=== PATIENT | female | born 1960 | race Caucasian/White ===

== ENCOUNTER 2018-05-09 10:13 | Day surgery (SDC) | payer OTHER ==
[~2018-05-09 10:13] MED LIST: Cefuroxime 10 MG/ML SYRINGE EYERT SCH; Lidocaine 1% PF 2 ML SDV INJECT SCH; Pilocarpine 4% Ophth Soln 15 ML Bot EYERT SCH
[2018-05-09] MEDS: Polymyxin B/Trimethoprim 10 ML Bottle EYERT SCH ×3 (10:58→12:57)
[2018-05-09] MEDS: Brimonidine 0.2% Ophth Soln 5 ML Bottle EYERT SCH ×3 (11:03→12:57)
[2018-05-09] MEDS: Phenylephrine 2.5% Ophth Soln 2 ML Bot EYERT SCH ×5 (11:08→12:39)
[2018-05-09] MEDS: Tropicamide 1% Ophth Soln 3 ML Bottle EYERT SCH ×4 (11:13→12:02)
--- NOTE | 2018-05-09 11:20 | PCM.PREANE ---
Preanesthetic Assessment - Procedure Proposed Procedure: cataract right - Anesthesia/Transfusion/Family Hx Anesthesia History: Prior Anesthesia Without Reaction Family History of Anesthesia Reaction: No Transfusion History: No Prior Transfusion(s) - Review of Systems General: No Symptoms Pulmonary: No Symptoms Cardiovascular: No Symptoms Gastrointestinal: No Symptoms Neurological: No Symptoms Other: Reports: None - Physical Assessment NPO Status Date: 05/08/18 NPO Status Time: 21:45 O2 Sat by Pulse Oximetry: 99 Respiratory Rate: 16 Vital Signs: Last Vital Signs Temp 97.9 F 05/09/18 10:55 Pulse 57 L 05/09/18 10:55 Resp 16 05/09/18 10:55 BP 149/81 H 05/09/18 10:55 Pulse Ox 99 05/09/18 10:55 Height: 5 ft 6 in Weight: 77.111 kg ASA Class: 2 Mental Status: Alert & Oriented x3 Airway Class: Mallampati = 1 Dentition: Reports: Normal Dentition, [place](s) Thyro-Mental Finger Breadths: 3 Mouth Opening Finger Breadths: 3 ROM/Head Extension: Full Lungs: Clear to Auscultation, Normal Respiratory Effort Cardiovascular: Regular Rate, Regular Rhythm - Allergies Allergies/Adverse Reactions: Allergies Allergy/AdvReac Type Severity Reaction Status Date / Time No Known Allergies Allergy Verified 05/08/18 10:12 - Blood Blood Available: No - Acknowledgements Anesthesia Type Planned: MAC Pt an Appropriate Candidate for the Planned Anesthesia: Yes Alternatives and Risks of Anesthesia Discussed w Pt/Guardian: Yes Pt/Guardian Understands and Agrees with Anesthesia Plan: Yes PreAnesthesia Questionnaire HEENT History: Reports: Impaired Vision Cardiovascular History: Reports: Heart Murmur Respiratory History: Reports: None Gastrointestinal History: Reports: None Musculoskeletal History: Reports: Arthritis (back) Neurological History: Reports: Headaches, Chronic Oncologic (Cancer) History: Reports: None - Past Surgical History Musculoskeletal Surgical History: Reports: Arthroscopic Knee, Carpal Tunnel, Knee Replacement (both) - SUBSTANCE USE Smoking Status *Q: Never Smoker Tobacco Use Within Last Twelve Months: No Second Hand Smoke Exposure: No Days Per Week of Alcohol Use: 2 Number of Drinks Per Day: 1 Total Drinks Per Week: 2 Recreational Drug Use History: No - HOME MEDS Home Medications: Home Meds Aspirin [Halfprin] 81 mg PO DAILY 05/08/18 [History] Carboxymethylcellulose Sodium [Refresh Tears 0.5%] 1 drop EYEBOTH BID PRN [History] Lutein 10 mg PO DAILY 05/08/18 [History] Multivitamin [Multivitamins] 1 cap PO DAILY 05/08/18 [History] [place] 3,6,9 Combination No.7 [[place] Dha] 1 tab PO DAILY 05/08/18 [History] - CURRENT (IN HOUSE) MEDS Current Meds: Current Medications Brimonidine Tartrate (Alphagan 0.2% Ophth Soln) 0 ml EYERT ASDIRECTED MAGDIEL Stop: 05/09/18 19:00 Last Admin: 05/09/18 11:03 Dose: 1 drop Cefuroxime Sodium (Zinacef) 0 mg EYERT ASDIRECTED MAGDIEL Stop: 05/09/18 19:00 Lidocaine HCl (Xylocaine-Mpf 1%) 0 ml INJECT ASDIRECTED MAGDIEL Stop: 05/09/18 19:00 Phenylephrine HCl (Gabriel-Synephrine 2.5% Ophth Soln) 0 ml EYERT ASDIRECTED MAGDIEL Stop: 05/09/18 19:00 Last Admin: 05/09/18 11:08 Dose: 1 drop Pilocarpine HCl (Pilocar 4% Ophth Soln) 0 ml EYERT ASDIRECTED MAGDIEL Stop: 05/09/18 19:00 Polymyxin/Trimethoprim Sulfate (Polytrim Ophth Soln) 0 ml EYERT ASDIRECTED MAGDIEL Stop: 05/09/18 19:00 Last Admin: 05/09/18 10:58 Dose: 1 drop Tetracaine HCl (Tetracaine 0.5% Steri-Unit [place]) 0 ml EYERT ASDIRECTED MAGDIEL Stop: 05/09/18 19:00 Tropicamide (Mydriacyl 1% Ophth Soln) 0 ml EYERT ASDIRECTED MAGDIEL Stop: 05/09/18 19:00 Last Admin: 05/09/18 11:13 Dose: 1 drop
[2018-05-09] MEDS: Tetracaine HCl/PF 0.5% 4 ML Bottle EYERT SCH ×2 (12:20→12:43)
--- NOTE | 2018-05-09 12:59 | PCM48HPAN ---
Post Anesthesia Note - EVALUATION WITHIN 48HRS OF ANESTHETIC Vital Signs in Normal Range: Yes Patient Participated in Evaluation: Yes Respiratory Function Stable: Yes Airway Patent: Yes Cardiovascular Function Stable: Yes Hydration Status Stable: Yes Pain Control Satisfactory: Yes Nausea and Vomiting Control Satisfactory: Yes Mental Status Recovered: Yes Pulse Rate: 68 SaO2: 100 Resp Rate: 16 Temperature: 36 C Blood Pressure: 154/94
== END 2018-05-09 13:06 | disposition home or self-care (01) ==
LOC: JD.SDS 10:13
PROVIDERS: ATTEND Ophthalmology
DX: H25.813 Combined forms of age-related cataract, bilateral (principal); I10 Essential (primary) hypertension; H40.003 Preglaucoma, unspecified, bilateral; H16.223 Keratoconjunctivitis sicca, not specified as Sjogren's, bilateral; H02.831 Dermatochalasis of right upper eyelid; Z79.82 Long term (current) use of aspirin; Z79.899 Other long term (current) drug therapy
CPT/HCPCS: 66984; C1780; J0697; J2001; A9270-GY

== ENCOUNTER 2018-06-06 08:09 | Day surgery (SDC) | payer OTHER ==
[~2018-06-06 08:09] MED LIST changes: +Cefuroxime 10 MG/ML SYRINGE EYELF SCH; -Cefuroxime 10 MG/ML SYRINGE EYERT SCH; +Pilocarpine 4% Ophth Soln 15 ML Bot EYELF SCH; -Pilocarpine 4% Ophth Soln 15 ML Bot EYERT SCH
[2018-06-06] MEDS: Polymyxin B/Trimethoprim 10 ML Bottle EYELF SCH ×3 (08:54→10:49)
[2018-06-06] MEDS: Brimonidine 0.2% Ophth Soln 5 ML Bottle EYELF SCH ×3 (09:00→10:49)
[2018-06-06] MEDS: Phenylephrine 2.5% Ophth Soln 2 ML Bot EYELF SCH ×5 (09:05→10:23)
[2018-06-06] MEDS: Tropicamide 1% Ophth Soln 3 ML Bottle EYELF SCH ×4 (09:10→09:55)
--- NOTE | 2018-06-06 09:32 | PCM.PREANE ---
Preanesthetic Assessment - Anesthesia/Transfusion/Family Hx Anesthesia History: Prior Anesthesia Without Reaction Family History of Anesthesia Reaction: No Transfusion History: No Prior Transfusion(s) - Review of Systems General: No Symptoms Cardiovascular: Other (HTN, +murmur) Gastrointestinal: No Symptoms Neurological: No Symptoms Other: Reports: None - Physical Assessment NPO Status Date: 06/05/18 NPO Status Time: 22:00 Pulse: 60 O2 Sat by Pulse Oximetry: 99 Respiratory Rate: 16 Vital Signs: Last Vital Signs Temp 36.5 C 06/06/18 08:45 Pulse 60 06/06/18 08:45 Resp 16 06/06/18 08:45 BP 150/85 H 06/06/18 08:45 Pulse Ox 99 06/06/18 08:45 Height: 1.68 m Weight: 77.111 kg ASA Class: 3 Mental Status: Alert & Oriented x3 Airway Class: Mallampati = 2 Dentition: Reports: Normal Dentition Thyro-Mental Finger Breadths: 3 Mouth Opening Finger Breadths: 3 ROM/Head Extension: Full Lungs: Clear to Auscultation, Normal Respiratory Effort Cardiovascular: Regular Rate, Regular Rhythm - Allergies Allergies/Adverse Reactions: Allergies Allergy/AdvReac Type Severity Reaction Status Date / Time No Known Allergies Allergy Verified 06/05/18 13:29 - Blood Blood Available: No - Anesthesia Plan Pre-Op Medication Ordered: None - Acknowledgements Anesthesia Type Planned: MAC Pt an Appropriate Candidate for the Planned Anesthesia: Yes Alternatives and Risks of Anesthesia Discussed w Pt/Guardian: Yes Pt/Guardian Understands and Agrees with Anesthesia Plan: Yes PreAnesthesia Questionnaire HEENT History: Reports: Impaired Vision Cardiovascular History: Reports: Heart Murmur Respiratory History: Reports: None Gastrointestinal History: Reports: None Musculoskeletal History: Reports: Arthritis (back) Neurological History: Reports: Headaches, Chronic Oncologic (Cancer) History: Reports: None - Past Surgical History Musculoskeletal Surgical History: Reports: Arthroscopic Knee, Carpal Tunnel, Knee Replacement (both) - HOME MEDS Home Medications: Home Meds Aspirin [Halfprin] 81 mg PO DAILY 05/08/18 [History] Carboxymethylcellulose Sodium [Refresh Tears 0.5%] 1 drop EYEBOTH BID PRN [History] Lutein 10 mg PO DAILY 05/08/18 [History] Multivitamin [Multivitamins] 1 cap PO DAILY 05/08/18 [History] [place] 3,6,9 Combination No.7 [[place] Dha] 1 tab PO DAILY 05/08/18 [History] - CURRENT (IN HOUSE) MEDS Current Meds: Current Medications Brimonidine Tartrate (Alphagan 0.2% Ophth Soln) 0 ml EYELF ASDIRECTED MAGDIEL Stop: 06/06/18 18:00 Last Admin: 06/06/18 09:00 Dose: 1 drop Cefuroxime Sodium (Zinacef) 0 mg EYELF ASDIRECTED MAGDIEL Stop: 06/06/18 18:00 Lidocaine HCl (Xylocaine-Mpf 1%) 0 ml INJECT ASDIRECTED MAGDIEL Stop: 06/06/18 18:00 Phenylephrine HCl (Gabriel-Synephrine 2.5% Ophth Soln) 0 ml EYELF ASDIRECTED MAGDIEL Stop: 06/06/18 18:00 Last Admin: 06/06/18 09:26 Dose: 1 drop Pilocarpine HCl (Pilocar 4% Ophth Soln) 0 ml EYELF ASDIRECTED MAGDIEL Stop: 06/06/18 18:00 Polymyxin/Trimethoprim Sulfate (Polytrim Ophth Soln) 0 ml EYELF ASDIRECTED MAGDIEL Stop: 06/06/18 18:00 Last Admin: 06/06/18 08:54 Dose: 1 drop Tetracaine HCl (Tetracaine 0.5% Steri-Unit [place]) 0 ml EYELF ASDIRECTED MAGDIEL Stop: 06/06/18 18:00 Tropicamide (Mydriacyl 1% Ophth Soln) 0 ml EYELF ASDIRECTED MAGDIEL Stop: 06/06/18 18:00 Last Admin: 06/06/18 09:20 Dose: 1 drop
[2018-06-06] MEDS: Tetracaine HCl/PF 0.5% 4 ML Bottle EYELF SCH ×2 (10:00→10:38)
--- NOTE | 2018-06-06 10:51 | PCM48HPAN ---
Post Anesthesia Note - EVALUATION WITHIN 48HRS OF ANESTHETIC Vital Signs in Normal Range: Yes Patient Participated in Evaluation: Yes Respiratory Function Stable: Yes Airway Patent: Yes Cardiovascular Function Stable: Yes Hydration Status Stable: Yes Pain Control Satisfactory: Yes Nausea and Vomiting Control Satisfactory: Yes Mental Status Recovered: Yes Pulse Rate: 63 SaO2: 100 Resp Rate: 16 Temperature: 36.6 C Blood Pressure: 154/94
== END 2018-06-06 11:04 | disposition home or self-care (01) ==
LOC: JD.SDS 08:09
PROVIDERS: ATTEND Ophthalmology
DX: H25.812 Combined forms of age-related cataract, left eye (principal); I10 Essential (primary) hypertension; H40.003 Preglaucoma, unspecified, bilateral; H02.834 Dermatochalasis of left upper eyelid; H02.831 Dermatochalasis of right upper eyelid; H16.223 Keratoconjunctivitis sicca, not specified as Sjogren's, bilateral; H16.103 Unspecified superficial keratitis, bilateral; Z79.82 Long term (current) use of aspirin; Z79.899 Other long term (current) drug therapy; Z98.41 Cataract extraction status, right eye; Z96.1 Presence of intraocular lens
CPT/HCPCS: 66984; C1780; J0697; A9270-GY; J2001

== ENCOUNTER 2020-01-30 08:53 | Day surgery (SDC) | payer OTHER ==
[~2020-01-30 08:53] MED LIST changes: -Cefuroxime 10 MG/ML SYRINGE EYELF SCH; +Lactated Ringers 1,000 ML IV SCH; -Lidocaine 1% PF 2 ML SDV INJECT SCH; +Lidocaine 1%/Sod Bicarbonate in NS 8.4% 1 ML Syringe IDERM PRN; -Pilocarpine 4% Ophth Soln 15 ML Bot EYELF SCH; +Sodium Chloride 0.9% 10 ML Syringe FLUSH PRN
--- NOTE | 2020-01-30 09:42 | PCM.PREANE ---
Preanesthetic Assessment - Anesthesia/Transfusion/Family Hx Anesthesia History: Prior Anesthesia Without Reaction Family History of Anesthesia Reaction: No Transfusion History: No Prior Transfusion(s) Intubation History: Unknown - Review of Systems General: Fever (couple days ago/resolved), Fatigue Pulmonary: No Symptoms (ETOH: socially) Cardiovascular: No Symptoms (History of HTN), Lightheadedness (positional changes) Gastrointestinal: Abdominal Pain (2/10 laying still, 5/10 with movement.), Decreased Appetite, Diarrhea, Nausea Neurological: No Symptoms, Headache Other: Reports: None - Physical Assessment NPO Status Date: 01/29/20 NPO Status Time: 21:00 Vital Signs: HR: 85 BP: 134/86 Resp: 16 Sat: 95% Temp: 99 Height: 1.68 m Weight: 75 kg ASA Class: 2 Mental Status: Alert & Oriented x3 Airway Class: Mallampati = 2 Dentition: Reports: Normal Dentition, [place](s), [place] Thyro-Mental Finger Breadths: 3 Mouth Opening Finger Breadths: 3 ROM/Head Extension: Full Lungs: Clear to Auscultation, Normal Respiratory Effort Cardiovascular: Regular Rate, Regular Rhythm, No Murmurs - Lab Values: All labs reviewed and noted and within acceptable ranges to proceed with scheduled procedure. - Imaging/EKG Impressions: EKG:SR rate= 79, abnormal R wave progression, left anterior fascicular block. - Allergies Allergies/Adverse Reactions: Allergies Allergy/AdvReac Type Severity Reaction Status Date / Time No Known Allergies Allergy Verified 06/05/18 13:29 - Anesthesia Plan Pre-Op Medication Ordered: None, Other (scopalamine patch placed in pre-op.) - Acknowledgements Anesthesia Type Planned: General Anesthesia Pt an Appropriate Candidate for the Planned Anesthesia: Yes Alternatives and Risks of Anesthesia Discussed w Pt/Guardian: Yes Pt/Guardian Understands and Agrees with Anesthesia Plan: Yes PreAnesthesia Questionnaire HEENT History: Reports: Impaired Vision Cardiovascular History: Reports: Heart Murmur Respiratory History: Reports: None Gastrointestinal History: Reports: None Musculoskeletal History: Reports: Arthritis (back) Neurological History: Reports: Headaches, Chronic Oncologic (Cancer) History: Reports: None - Past Surgical History Musculoskeletal Surgical History: Reports: Arthroscopic Knee, Carpal Tunnel, Knee Replacement (both) - HOME MEDS Home Medications: Home Meds Aspirin [Halfprin] 81 mg PO DAILY 05/08/18 [History] Carboxymethylcellulose Sodium [Refresh Tears 0.5%] 1 drop EYEBOTH BID PRN [History] Lutein 10 mg PO DAILY 05/08/18 [History] Multivitamin [Multivitamins] 1 cap PO DAILY 05/08/18 [History] [place] 3,6,9 Combination No.7 [[place] Dha] 1 tab PO DAILY 05/08/18 [History] - CURRENT (IN HOUSE) MEDS Current Meds: Current Medications Lactated Ringer's (Ringers, Lactated) 1,000 mls @ 125 mls/hr IV ASDIRECTED MAGDIEL Stop: 01/30/20 23:00 Lidocaine/Sodium Bicarbonate (Buffered Lidocaine 1% In Ns 8.4%) 0.25 ml IDERM ONETIME PRN PRN Reason: Prior to IV Start Stop: 01/30/20 18:00 Sodium Chloride (Saline Flush) 10 ml FLUSH ASDIRECTED PRN PRN Reason: Keep Vein Open Stop: 01/30/20 18:00
[2020-01-30] MEDS ORDERED: Scopolamine 1.5 MG Transdermal Patch TRDERM ONE (09:43)
[2020-01-30] MEDS ORDERED: ceFAZolin 1 GM Vial ONE (09:46)
[2020-01-30] MEDS ORDERED: Ondansetron 4 MG/2 ML SDV ONE (09:46)
[2020-01-30] MEDS ORDERED: Rocuronium 50 MG/5 ML Vial ONE (09:46)
[2020-01-30] MEDS ORDERED: Lactated Ringers 1,000 ML ONE (09:46)
[2020-01-30] MEDS ORDERED: Lidocaine 1% 4 ML ONE (09:46)
[2020-01-30] MEDS ORDERED: Midazolam 1 MG/ML 2 ML SDV ONE (09:47)
[2020-01-30] MEDS ORDERED: Propofol 200 MG/20 ML SDV ONE (09:47)
[2020-01-30] MEDS ORDERED: Dexamethasone 4 MG/ML 5 ML MDV ONE (09:47)
[2020-01-30] MEDS ORDERED: fentaNYL 250 MCG/5 ML SDV ONE (09:47)
[2020-01-30] MEDS ORDERED: Ketorolac 15 MG/ML SDV ONE (09:47)
[2020-01-30] MEDS ORDERED: Bupivacaine 0.5%/EPINEPHrine 1:200,000 50 ML MDV ONE (10:46)
[2020-01-30] MEDS ORDERED: Lidocaine 1% with EPINEPHrine 1:100,000 20 ML MDV ONE ×2 (10:46→11:20)
[2020-01-30] MEDS ORDERED: fentaNYL 100 MCG/2 ML SDV IVPUSH PRN (11:32)
[2020-01-30] MEDS ORDERED: HYDROmorphone 0.5 MG/0.5 ML Syringe IVPUSH PRN (11:32)
[2020-01-30] MEDS ORDERED: Ondansetron 4 MG/2 ML SDV IVPUSH PRN (11:32)
[2020-01-30] MEDS ORDERED: HYDROmorphone 0.5 MG/0.5 ML Syringe ONE (12:36)
--- NOTE | 2020-01-30 12:40 | PCM.OPNOTE ---
- General Post-Op/Procedure Note Date of Surgery/Procedure: 01/30/20 Operative Procedure(s): laparoscopic cholecystectomy Findings: acute cholecystitis Pre Op Diagnosis: symptomatic cholelithiasis Post-Op Diagnosis: acute cholecystitis Anesthesia Technique: General ET Tube Primary Surgeon: Flory Quinones Anesthesia Provider: Barbara Arzola Pathology: gallbladder with contents Fluid Replacement, Intraop: 1,500 Output, Urine Amount: 0 EBL in mLs: 15 Complications: none apparent Condition: Good
--- NOTE | 2020-01-30 12:48 | PCM.PRNOTE ---
- Free Text/Narrative Note: OPERATIVE REPORT Date of Surgery/Procedure: January 30, 2020 Operative Procedure(s): laparoscopic cholecystectomy Findings: Acute cholecystitis Pre Op Diagnosis: Symptomatic cholelithiasis Post-Op Diagnosis: Acute cholecystitis Anesthesia Technique: General ET Tube Primary Surgeon: Flory Quinones MD Anesthesia Provider: Barbara Arzola CRNA Pathology: Gallbladder with contents Fluid Replacement, Intraop: 1500cc Output, Urine Amount: 0cc EBL: 15cc Drain/Tube Comments: None Indication for the procedure: The patient is a 59-year-old lady who presented to my office with findings of symptomatic cholelithiasis and possible acute cholecystitis. She was scheduled for urgent cholecystectomy. The patient was counseled for laparoscopic cholecystectomy, with possible conversion to open. After discussion of the risks of infection, bleeding and injury to the bile duct as well as increased complication from previous intra-abdominal surgery, the patient's consent was obtained. Description of the procedure: The patient presented to the outpatient holding area on the day of the procedure. The history and physical were verified and consent was present and on the chart. The patient was taken back to the operating room and placed in supine position on the operating table. SCD boots were placed and functional prior to the start of the procedure. Preoperative antibiotics were administered according to SCIP protocol, Ancef 2 g IV. A surgical timeout was performed. The patient then had induction of general anesthesia and was intubated without difficulty. The patient was prepped and draped in standard surgical fashion. We began by making an infraumbilical vertical incision and deepened this down through subcutaneous fat to the level of the fascia. This was grasped and incised. We bluntly entered through the peritoneum and a finger sweep was done. A stay suture of 0 Vicryl was placed in the fascia. The 12 mm balloon Flores port was then inserted into the abdomen and the balloon inflated. Insufflation was attached and we had appropriate opening pressures. The abdomen was then insufflated to 15 mmHg. We inserted a scope into the abdomen and inspected the area where we had entered. There was no evidence of injury to surrounding structures with no evidence of bile or bleeding. A TAP block was then performed using 1% lidocaine with epinephrine mixed with 0.5% bupivacaine with epinephrine. The patient was then positioned with head up and right side up to facilitate exposure of the gallbladder. We then proceeded with placing our additional ports. A 5mm port was placed in the epigastric region. Two additional 5mm ports placed under direct visualization in the right upper quadrant. Once we had sufficiently exposed the dome of the gallbladder. This was grasped and retracted cephalad. We proceeded with our dissection to expose the cystic duct and cystic artery. We did have a critical view. The cystic duct and artery were then clipped and cut using laparoscopic scissors. There appeared to be a second posterior artery which was dissected and clipped. This was cut with scopic scissors. We then proceeded to fully dissect the gallbladder off of the cystic plate using the Bovie device. The gallbladder was then placed in the Endo Catch bag and withdrawn towards the umbilical port. We then inspected the area of the dissection. A small hole was made in the gallbladder during the dissection with a spillage of a small amount of bile. The blood and spilled bile was suctioned and removed from the abdomen. Surgicel was used for hemostasis and then removed. There was no significant bleeding and hemostasis was achieved. We then inspected the port sites and desufflated the abdomen. The ports were then removed. The gallbladder was withdrawn through the umbilical port site. We then proceeded to close the umbilical port site using an 0 Vicryl stitch. We had good closure of the fascia. A superficial 4-0 monocryl suture was used to approximate the skin. The skin was covered with Dermabond surgical glue. The patient tolerated the procedure well and was extubated without difficulty. He was transported to the PACU in stable condition. All sponge, needle counts correct. I was scrubbed and actively participated in the entire procedure. No immediate complications noted. Complications: None apparent Condition: Good Flory Quinones MD General Surgery
--- NOTE | 2020-01-30 12:56 | PCM.POSTAN ---
POST ANESTHESIA ASSESSMENT - MENTAL STATUS Mental Status: Other (Drowsy) - VITAL SIGNS Vital Signs: Last Vital Signs Temp 36.7 C 01/30/20 12:49 Pulse 70 01/30/20 12:49 Resp 8 L 01/30/20 12:49 BP 135/77 01/30/20 12:49 Pulse Ox 100 01/30/20 12:49 - RESPIRATORY Respiratory Status: Respiratory Rate WNL, Airway Patent, O2 Saturation Stable, Supplemental Oxygen - CARDIOVASCULAR CV Status: Pulse Rate WNL, Blood Pressure Stable - GASTROINTESTINAL GI Status: No Symptoms - PAIN Pain Score: 0 - POST OP HYDRATION Hydration Status: Adequate & Stable
--- NOTE | 2020-01-30 13:57 | PCM48HPAN ---
Post Anesthesia Note - EVALUATION WITHIN 48HRS OF ANESTHETIC Vital Signs in Normal Range: Yes Patient Participated in Evaluation: Yes Respiratory Function Stable: Yes Airway Patent: Yes Cardiovascular Function Stable: Yes Hydration Status Stable: Yes Pain Control Satisfactory: Yes Nausea and Vomiting Control Satisfactory: Yes Mental Status Recovered: Yes Vital Signs: Last Vital Signs Temp 37.2 C 01/30/20 13:30 Pulse 85 01/30/20 09:05 Resp 11 L 01/30/20 13:30 BP 138/78 01/30/20 13:30 Pulse Ox 98 01/30/20 13:30
== END 2020-01-30 14:38 | disposition home or self-care (01) ==
LOC: JD.SDS 08:53
PROVIDERS: ATTEND Surgery
DX: K80.12 Calculus of gallbladder with acute and chronic cholecystitis without obstruction (principal); E66.3 Overweight; I10 Essential (primary) hypertension; Z79.899 Other long term (current) drug therapy; Z98.890 Other specified postprocedural states; Z68.28 Body mass index [BMI] 28.0-28.9, adult
CPT/HCPCS: 47562; 93005; A9270; J0690; J1100; J1170; J1885; J2001; J2250; J2405; J2704; J2710; J3010; J3490; J7120; 00790